=== PATIENT | female | born 1980 | race Caucasian/White ===

== ENCOUNTER 2019-01-30 06:54 | Observation (INO) | payer BC ==
[2019-01-30] MEDS ORDERED: Naloxone 0.4 MG/ML SDV IVPUSH PRN (07:47)
[2019-01-30] MEDS ORDERED: ePHEDrine 50 MG/ML SDV IVPUSH PRN ×2 (07:47)
[2019-01-30] MEDS ORDERED: Sodium Chloride 0.9% 10 ML Syringe FLUSH PRN (07:47)
[2019-01-30] MEDS ORDERED: diphenhydrAMINE 50 MG/ML SDV IVPUSH PRN ×2 (07:47)
[2019-01-30] MEDS ORDERED: Ropivacaine 200 MG in Premix Bag 1 BAG EPIDUR SCH (08:00)
[2019-01-30] MEDS ORDERED: Misoprostol 50 MCG (1/2 of 100 MCG) Tab VAG ONE (08:00)
[2019-01-30] MEDS ORDERED: Lactated Ringers 1,000 ML IV SCH (08:00)
--- NOTE | 2019-01-30 08:02 | PCM.LDHP ---
L&D History of Present Illness - General Date of Service: 01/30/19 Admit Problem/Dx: Patient Status Order with Admit Dx/Problem 01/30/19 07:48 Patient Status [ADT] Routine Admission Diagnosis/Problem Admission Diagnosis/Problem - Related Data Allergies/Adverse Reactions: Allergies Allergy/AdvReac Type Severity Reaction Status Date / Time No Known Allergies Allergy Verified 01/30/19 07:46 H&P Review of Systems - Review of Systems: Review Of Systems: See Below General: Reports: No Symptoms HEENT: Reports: No Symptoms Pulmonary: Reports: No Symptoms Cardiovascular: Reports: No Symptoms Gastrointestinal: Reports: No Symptoms Genitourinary: Reports: No Symptoms Musculoskeletal: Reports: No Symptoms Skin: Reports: No Symptoms Psychiatric: Reports: No Symptoms Neurological: Reports: No Symptoms Hematologic/Lymphatic: Reports: No Symptoms Immunologic: Reports: No Symptoms L&D Exam - Exam Exam: See Below - OB Specific Contraction Intensity: Mild Movement: Active Heart Tones: Present Presentation: Vertex - Baca Score Baca Score Cervix Position: Midposition Baca Score Consistency: Soft Baca Score Effacement: 51-70% Baca Score Dilation: 1-2 cm Baca Score Infant's Station: -1 ,0 Baca Score Total: 8 - Exam General: Alert, Oriented HEENT: PERRLA, Conjunctiva Clear, EACs Clear, EOMI, Hearing Intact, Mucosa Moist & [place], Nares Patent, Normal Nasal Septum, Posterior Pharynx Clear, Pupils Equal, Pupils Reactive, TMs Clear Neck: Supple, Trachea Midline Lungs: Clear to Auscultation, Normal Respiratory Effort Cardiovascular: Regular Rate, Regular Rhythm GI/Abdominal Exam: Normal Bowel Sounds, Soft, Non-Tender, No Organomegaly, No Distention, No Abnormal Bruit, No Mass, Pelvis Stable Rectal Exam: Normal Exam, Normal Rectal Tone Genitourinary: Normal external exam, Normal bimanual exam, Normal speculum exam , Cervical dilitation Back Exam: Normal Inspection, Full Range of Motion Extremities: Normal Inspection, Normal Range of Motion, Non-Tender, No Pedal Edema, Normal Capillary Refill Skin: Warm, Dry, Intact Neurological: Cranial Nerves Intact, Reflexes Equal Bilateral DTR: 2+: Patella (L), Patella (R) Psychiatric: Alert, Normal Affect, Normal Mood - Patient Data Lab Results Last 24 hrs: Laboratory Results - last 24 hr 01/30/19 01/30/19 Range/Units 07:13 07:16 WBC 6.6 (4.5-11.0) K/uL RBC 3.83 (3.30-5.50) M/uL Hgb 11.5 L (12.0-15.0) g/dL Hct 34.7 L (36.0-48.0) % MCV 91 (80-98) fL MCH 30 (27-31) pg MCHC 33 (32-36) % Plt Count 205 (150-400) K/uL Neut % (Auto) 61 (36-66) % Lymph % (Auto) 29 (24-44) % [place] % (Auto) 9 H (2-6) % Eos % (Auto) 1 L (2-4) % Baso % (Auto) 0 (0-1) % Urine Color Yellow (YELLOW) Urine Appearance Cloudy A (CLEAR) Urine pH 6.0 (5.0-8.0) Ur Specific [place] 1.015 (1.008-1.030) Urine Protein Negative (NEGATIVE) mg/dL Urine Glucose (UA) Negative (NEGATIVE) mg/dL Urine Ketones Negative (NEGATIVE) mg/dL Urine Occult Blood Negative (NEGATIVE) Urine Nitrite Negative (NEGATIVE) Urine Bilirubin Negative (NEGATIVE) Urine Urobilinogen 0.2 (0.2-1.0) EU/dL Ur Leukocyte Esterase Trace H (NEGATIVE) Urine RBC 0-5 (0-5) Urine WBC 5-10 H (0-5) Ur Epithelial Cells Many Amorphous Sediment Not seen Urine Bacteria Moderate Urine Mucus Few Result Diagrams: 01/30/19 07:16 - Problem List (1) Advanced maternal age (AMA), 40 years or greater SNOMED Code(s): 144094203 ICD Code: [id number] - Status: Acute Current Visit: Yes (2) SNOMED Code(s): 38274901 ICD Code: Z34.90 - ENCNTR FOR SUPRVSN OF NORMAL , UNSP, UNSP TRIMESTER Status: Acute Current Visit: Yes Qualifiers: Weeks of gestation: 39 weeks Qualified Code(s): Z3A.39 - 39 weeks gestation of (3) Encounter for induction of labor SNOMED Code(s): 735297309 ICD Code: Z34.90 - ENCNTR FOR SUPRVSN OF NORMAL , UNSP, UNSP TRIMESTER Status: Acute Current Visit: Yes Problem List Initiated/Reviewed/Updated: Yes Orders Last 24hrs: Active Orders 24 hr Category Date Time Status Patient Status [ADT] Routine ADT 01/30/19 07:48 Ordered Ambulate [RC] PER UNIT ROUTINE Care 01/30/19 07:47 Ordered Communication Order [RC] ASDIRECTED Care 01/30/19 07:48 Ordered Communication Order [RC] ASDIRECTED Care 01/30/19 07:48 Ordered Communication Order [RC] ROUTINE Care 01/30/19 07:48 Ordered Communication Order [RC] ROUTINE Care 01/30/19 07:48 Ordered Communication Order [RC] ROUTINE Care 01/30/19 07:48 Ordered Dietary Supplements [RC] BIDMEALS Care 01/30/19 07:55 Ordered Heart Tones [RC] PER UNIT ROUTINE Care 01/30/19 07:48 Ordered Non Stress Test [RC] Click to Edit Care 01/30/19 07:48 Ordered Insert Urinary Catheter [OM.PC] ASDIRECTED Care 01/30/19 08:00 Ordered Local Anesthetic Infusion Pump [RC] ASDIRECTED Care 01/30/19 07:48 Ordered Notify Provider Vital Signs [RC] PRN Care 01/30/19 07:47 Ordered Notify Provider [RC] PRN Care 01/30/19 07:48 Ordered Oxygen Therapy [RC] ASDIRECTED Care 01/30/19 07:48 Ordered PCEA Epidural [RC] ASDIRECTED Care 01/30/19 07:48 Ordered PCEA Epidural [RC] ASDIRECTED Care 01/30/19 07:48 Ordered PCEA Epidural [RC] ASDIRECTED Care 01/30/19 07:48 Ordered Peripheral IV Care [RC] . DIRECTED Care 01/30/19 07:48 Ordered Pulse Oximetry [RC] ASDIRECTED Care 01/30/19 07:48 Ordered Urinary Catheter Assessment [RC] ASDIRECTED Care 01/30/19 07:48 Ordered VTE/DVT Education [RC] Click to Edit Care 01/30/19 07:53 Ordered Vital Signs [RC] PER UNIT ROUTINE Care 01/30/19 07:48 Ordered Vital Signs [RC] PER UNIT ROUTINE Care 01/30/19 07:48 Ordered DRUG SCREEN, URINE [URCHEM] Routine Lab 01/30/19 07:42 Ordered Lactated Ringers @ 100 MLS/HR(1,000ml) Med 01/30/19 08:00 Ordered Lactated Ringers [Ringers, Lactated] 1,000 ml IV ASDIRECTED Lactated Ringers [Ringers, Lactated] 1,000 ml Med 01/30/19 07:47 Ordered IV .BOLUS Naloxone [Narcan] Med 01/30/19 07:47 Ordered 0.1 mg IVPUSH ASDIRECTED PRN Penicillin G Potassium [Pfizerpen] 5 millunits Med 01/30/19 07:54 Ordered Sodium Chloride 0.9% [Normal Saline] 50 ml IV ONETIME Ropivacaine [Naropin 0.2%] 200 mg Med 01/30/19 08:00 Ordered Premix Bag 1 bag EPIDUR ASDIRECTED Sodium Chloride 0.9% [Saline Flush] Med 01/30/19 07:47 Ordered 10 ml FLUSH ASDIRECTED PRN diphenhydrAMINE [Benadryl] Med 01/30/19 07:47 Ordered 25 mg IVPUSH Q6H PRN diphenhydrAMINE [Benadryl] Med 01/30/19 07:47 Ordered 50 mg IVPUSH Q6H PRN ePHEDrine [ePHEDrine sulfate] Med 01/30/19 07:47 Ordered 10 mg IVPUSH ASDIRECTED PRN ePHEDrine [ePHEDrine sulfate] Med 01/30/19 07:47 Ordered 10 mg IVPUSH ASDIRECTED PRN miSOPROStol [Cytotec] Med 01/30/19 07:54 Once 50 mcg VAG ONETIME ONE DVT/VTE Prophylaxis Reflex [OM.PC] Routine Oth 01/30/19 07:47 Ordered Epidural Catheter Management [OM.PC] Routine Oth 01/30/19 07:48 Ordered Epidural Catheter Management [OM.PC] Urgent Oth 01/30/19 07:48 Ordered Peripheral IV Insertion Pediatric [OM.PC] Routine Oth 01/30/19 07:48 Ordered Saline Lock Insert [OM.PC] Routine Oth 01/30/19 07:48 Ordered Resuscitation Status Routine Resus Stat 01/30/19 07:47 Ordered Medication Orders Diphenhydramine HCl (Benadryl) 25 mg IVPUSH Q6H PRN PRN Reason: Itching Diphenhydramine HCl (Benadryl) 50 mg IVPUSH Q6H PRN PRN Reason: Itching Ephedrine Sulfate (Ephedrine Sulfate) 10 mg IVPUSH ASDIRECTED PRN PRN Reason: Hypotension Ephedrine Sulfate (Ephedrine Sulfate) 10 mg IVPUSH ASDIRECTED PRN PRN Reason: Hypotension Lactated Ringer's (Ringers, Lactated) 1,000 mls @ 999 mls/hr IV .BOLUS ONE Stop: 01/30/19 08:47 Ropivacaine 200 mg/ Premix 100 mls @ 0 mls/hr EPIDUR ASDIRECTED [facility] Penicillin G Potassium 5 (millunits/ Sodium Chloride) 50 mls @ 100 mls/hr IV ONETIME ONE Stop: 01/30/19 08:23 Lactated Ringer's (Ringers, Lactated) 1,000 mls @ 100 mls/hr IV ASDIRECTED [facility] Misoprostol (Cytotec) 50 mcg VAG ONETIME ONE Stop: 01/30/19 07:55 Naloxone HCl (Narcan) 0.1 mg IVPUSH ASDIRECTED PRN PRN Reason: Oversedation Sodium Chloride (Saline Flush) 10 ml FLUSH ASDIRECTED PRN PRN Reason: Keep Vein Open Assessment/Plan Comment:: 01/30/2019 38 yo here at 39 1/7 weeks gestation for a medical induction of labor due to advanced maternal age and history of large babies on delivery Patient has also requested this induction of labor FHTs category one Patient is luda irregularly SVE-1-2/70/-1 Cytotec placed vaginally Plan- Continue to monitor for active labor Continue to monitor FHTs Pain management per patient request Patient desires epidural for pain management Patient may eat regular diet Patient may be up ad melo Plan and anticipate a vaginal delivery
[2019-01-30] MEDS: Lactated Ringers 1,000 ML IV ONE ×2 (08:12→12:43)
[2019-01-30] MEDS ORDERED: Penicillin G Potassium 5 MILLUNITS in Sodium Chloride 0.9% 50 ML IV ONE (08:30)
[2019-01-30] MEDS ORDERED: Ropivacaine 100 ML ONE (12:22)
[2019-01-30] MEDS: Penicillin G Potassium 2.5 MILLUNITS in Sodium Chloride 0.9% 50 ML IV SCH ×3 (12:42→20:40)
--- NOTE | 2019-01-30 13:07 | ANES ---
DATE OF SERVICE: 01/30/2019 INDICATION: I was called this morning for a lady in for an induction requesting a labor epidural. It is her third baby. She has had epidurals before. A brief history and physical was done with the patient. The patient has had a normal , does not have any abnormal bleeding issues that require her to be on blood thinners. Overall, very normal . Platelet count was 205. Risks and benefits were reviewed with the patient. The patient verbalizes understanding, wishes to proceed with the labor epidural today. She has no known allergies also. TECHNIQUE: The patient was then sat at the edge of the bed. Betadine prep x3 to the lumbar region was done. Sterile drape was placed. A 17-gauge Tuohy needle was inserted at approximately the L4-L5 position. Loss of resistance was achieved at approximately 5.5 cm. Negative paresthesia, negative heme, negative CSF were noted. Catheter was then placed and Tuohy needle was withdrawn. Catheter was pulled back and secured at approximately 14 cm. A 3 mL test dose was done. The patient was then laid in supine position with head of bed slightly elevated and left uterine displacement. Several minutes after the test dose, the patient's heart rate maintained in the 90s and the patient was easily able to move her legs. After the patient was laid down and the test dose was negative, I then proceeded to give the patient 12 mL bolus of 0.2% ropivacaine via the epidural and started her on 0.2% ropivacaine drip at 12 mL an hour. The patient's blood pressure maintained after the labor epidural bolus. Please refer to the nurse's notes for vital signs. Just prior to leaving the patient's room, patient stated that she was starting to have a little bit of numbness and tingling in both of her legs and was happy with her labor epidural at that time. We will continue to monitor the patient as needed. Calin Jeffery CRNA /[id number]
--- NOTE | 2019-01-30 13:18 | PCM.PNLD ---
Labor Progress Note - VS & Meds Vital Signs: Last Vital Signs Temp 35.8 C 01/30/19 08:15 Pulse 100 01/30/19 12:25 Resp 18 01/30/19 12:15 BP 120/88 01/30/19 12:25 Pulse Ox 95 01/30/19 12:25 Active Medications: Current Medications Diphenhydramine HCl (Benadryl) 25 mg IVPUSH Q6H PRN PRN Reason: Itching Diphenhydramine HCl (Benadryl) 50 mg IVPUSH Q6H PRN PRN Reason: Itching Ephedrine Sulfate (Ephedrine Sulfate) 10 mg IVPUSH ASDIRECTED PRN PRN Reason: Hypotension Ephedrine Sulfate (Ephedrine Sulfate) 10 mg IVPUSH ASDIRECTED PRN PRN Reason: Hypotension Ropivacaine 200 mg/ Premix 100 mls @ 0 mls/hr EPIDUR ASDIRECTED [facility] Lactated Ringer's (Ringers, Lactated) 1,000 mls @ 100 mls/hr IV ASDIRECTED [facility] Last Admin: 01/30/19 08:14 Dose: 100 mls/hr Oxytocin/Sodium Chloride (Pitocin In Ns 20 Units/1,000 Ml) 20 unit in 1,000 mls @ 2,997 mls/hr IV TITRATE [facility]IGUELITO Penicillin G Potassium 2.5 (millunits/ Sodium Chloride) 50 mls @ 100 mls/hr IV Q4H [facility] Last Admin: 01/30/19 12:42 Dose: 100 mls/hr Naloxone HCl (Narcan) 0.1 mg IVPUSH ASDIRECTED PRN PRN Reason: Oversedation Sodium Chloride (Saline Flush) 10 ml FLUSH ASDIRECTED PRN PRN Reason: Keep Vein Open Discontinued Medications Lactated Ringer's (Ringers, Lactated) 1,000 mls @ 999 mls/hr IV .BOLUS ONE Stop: 01/30/19 08:47 Last Admin: 01/30/19 12:43 Dose: 999 mls/hr Penicillin G Potassium 5 (millunits/ Sodium Chloride) 50 mls @ 100 mls/hr IV ONETIME ONE Stop: 01/30/19 08:59 Last Admin: 01/30/19 08:45 Dose: 100 mls/hr Oxytocin/Sodium Chloride (Pitocin In Ns 20 Units/1,000 Ml) 20 unit in 1,000 mls @ 2,997 mls/hr IV ONETIME ONE; Protocol Stop: 01/30/19 12:15 Ropivacaine (Naropin 0.2%) Confirm Administered Dose 100 mls @ as directed .ROUTE .STK-MED ONE Stop: 01/30/19 12:23 Misoprostol (Cytotec) 50 mcg VAG ONETIME ONE Stop: 01/30/19 08:01 Last Admin: 01/30/19 08:09 Dose: 50 mcg - Uterine Contractions Uterine Monitoring Mode: External [place] Contraction Frequency (min): 1-2.5 Contraction Duration (sec): 30-90 Contraction Intensity: Moderate Uterine Resting Tone: Soft - Vaginal Exam Dilation (cm): 3.5 Effacement (Percent): 70 Station: -2 Cervical Position: Midposition Sterile Vaginal Exam Performed By: Teresa Phan - Labor Progress (Free Text) Labor Progress: 01/30/2019 Patient doing well Patient requested epidural-epidural done SVE-3-4/70/-2 FHTs category one Plan- Continue to monitor for active labor Continue to monitor FHTs Start pitocin now per protocol PCN G still IV for GBS prophylaxis Plan and anticipate a vaginal delivery
--- NOTE | 2019-01-30 18:26 | PCM.PNLD ---
Labor Progress Note - VS & Meds Vital Signs: Last Vital Signs Temp 35.8 C 01/30/19 13:45 Pulse 108 H 01/30/19 17:00 Resp 16 01/30/19 13:45 BP 127/72 01/30/19 17:00 Pulse Ox 99 01/30/19 17:00 Active Medications: Current Medications Diphenhydramine HCl (Benadryl) 25 mg IVPUSH Q6H PRN PRN Reason: Itching Diphenhydramine HCl (Benadryl) 50 mg IVPUSH Q6H PRN PRN Reason: Itching Ephedrine Sulfate (Ephedrine Sulfate) 10 mg IVPUSH ASDIRECTED PRN PRN Reason: Hypotension Ephedrine Sulfate (Ephedrine Sulfate) 10 mg IVPUSH ASDIRECTED PRN PRN Reason: Hypotension Ropivacaine 200 mg/ Premix 100 mls @ 0 mls/hr EPIDUR ASDIRECTED [facility] Lactated Ringer's (Ringers, Lactated) 1,000 mls @ 100 mls/hr IV ASDIRECTED [facility] Last Admin: 01/30/19 08:14 Dose: 100 mls/hr Oxytocin/Sodium Chloride (Pitocin In Ns 20 Units/1,000 Ml) 20 unit in 1,000 mls @ 2,997 mls/hr IV TITRATE [facility] Last Infusion: 01/30/19 17:06 Dose: 13 munits/min, 39 mls/hr Penicillin G Potassium 2.5 (millunits/ Sodium Chloride) 50 mls @ 100 mls/hr IV Q4H [facility] Last Admin: 01/30/19 16:39 Dose: 100 mls/hr Naloxone HCl (Narcan) 0.1 mg IVPUSH ASDIRECTED PRN PRN Reason: Oversedation Sodium Chloride (Saline Flush) 10 ml FLUSH ASDIRECTED PRN PRN Reason: Keep Vein Open Discontinued Medications Lactated Ringer's (Ringers, Lactated) 1,000 mls @ 999 mls/hr IV .BOLUS ONE Stop: 01/30/19 08:47 Last Admin: 01/30/19 12:43 Dose: 999 mls/hr Penicillin G Potassium 5 (millunits/ Sodium Chloride) 50 mls @ 100 mls/hr IV ONETIME ONE Stop: 01/30/19 08:59 Last Admin: 01/30/19 08:45 Dose: 100 mls/hr Oxytocin/Sodium Chloride (Pitocin In Ns 20 Units/1,000 Ml) 20 unit in 1,000 mls @ 2,997 mls/hr IV ONETIME ONE; Protocol Stop: 01/30/19 12:15 Ropivacaine (Naropin 0.2%) Confirm Administered Dose 100 mls @ as directed .ROUTE .STK-MED ONE Stop: 01/30/19 12:23 Misoprostol (Cytotec) 50 mcg VAG ONETIME ONE Stop: 01/30/19 08:01 Last Admin: 01/30/19 08:09 Dose: 50 mcg - Uterine Contractions Uterine Monitoring Mode: External [place] Contraction Frequency (min): 1-6 Contraction Duration (sec): 60-110 Contraction Intensity: Moderate Uterine Resting Tone: Soft - Monitoring Heart Rate (FHR) Variability: Moderate (6-25 bmp) Accelerations: Present, 15x15 Decelerations: None Strip Review: Category I - Vaginal Exam Dilation (cm): 3.5 Effacement (Percent): 70 Station: -2 Cervical Position: Midposition Sterile Vaginal Exam Performed By: Teresa Phan Vaginal Exam Comment: no change in SVE - Labor Progress (Free Text) Labor Progress: 01/30/2019 Patient has not progressed while on pitocin Pitocin is at 19 units SVE-3.5/70/-2 with ballotable head FHTs category one Epidural is dense Discussion made with and patient about all options-shutting epidural off and sleeping with restart in am, shutting epidural off and going home, slow breaking water with scalp electrode, or proceeding as is with pitocin and epidural like ordinally planned. Patient and both agreed to stop epidural, shut medicine off, restart in am. Education done that she may go into labor on her own tonight, that she may still have to go home tomorrow if no change. Education that they also may have to redo epidural once labor kicks in and she wants it back. Patient agreeable to all options. Did phone Don from anesthesia-he states to shut off epidural, leave in place, and he will come back an bolus if needed. Also he will come check on us after a procedure in am if we have not called him yet Plan- Shut epidural Off Shut pitocin off Continue monitoring until full sensation is back, then can intermittently monitor while patient sleeps Pull deluna catheter once full sensation is back and urinate on own If active labor and is 5-6cm or SROM occurs patient can have epidural- anesthesia to be notified then at that time and have stated they will come back in to bolus and turn epidural back on. Call provider if this occurs. Continue PCN IV due to risk of SROM Continue IV fluids at TKO May eat regular diet Vistaril if needed for sleep-do not give after 11pm Vital signs and NST every four hours if sleeping Will plan to start induction of labor again in am @ 0700-if no spontaneous labor during night.
[2019-01-30] MEDS ORDERED: hydrOXYzine HCl 25 MG Tab PO SCH (21:00)
[2019-01-31] MEDS: Penicillin G Potassium 2.5 MILLUNITS in Sodium Chloride 0.9% 50 ML IV SCH ×4 (00:51→13:33)
[2019-01-31] MEDS ORDERED: Misoprostol 50 MCG (1/2 of 100 MCG) Tab VAG ONE (06:02)
[2019-01-31] MEDS ORDERED: Misoprostol 25 MCG (1/4 of 100 MCG) Tab ONE (06:05)
--- NOTE | 2019-01-31 06:25 | PCM.PNLD ---
Labor Progress Note - VS & Meds Vital Signs: Last Vital Signs Temp 36.0 C 01/30/19 21:54 Pulse 97 01/30/19 21:54 Resp 20 01/30/19 21:54 BP 136/79 01/30/19 21:54 Pulse Ox 96 01/30/19 21:54 Active Medications: Current Medications Diphenhydramine HCl (Benadryl) 25 mg IVPUSH Q6H PRN PRN Reason: Itching Diphenhydramine HCl (Benadryl) 50 mg IVPUSH Q6H PRN PRN Reason: Itching Ephedrine Sulfate (Ephedrine Sulfate) 10 mg IVPUSH ASDIRECTED PRN PRN Reason: Hypotension Ephedrine Sulfate (Ephedrine Sulfate) 10 mg IVPUSH ASDIRECTED PRN PRN Reason: Hypotension Hydroxyzine HCl (Atarax) 50 mg PO BEDTIME [facility] Last Admin: 01/31/19 00:54 Dose: 50 mg Ropivacaine 200 mg/ Premix 100 mls @ 0 mls/hr EPIDUR ASDIRECTED [facility] Lactated Ringer's (Ringers, Lactated) 1,000 mls @ 100 mls/hr IV ASDIRECTED [facility] Last Admin: 01/30/19 08:14 Dose: 100 mls/hr Oxytocin/Sodium Chloride (Pitocin In Ns 20 Units/1,000 Ml) 20 unit in 1,000 mls @ 2,997 mls/hr IV TITRATE [facility] Last Infusion: 01/30/19 17:06 Dose: 13 munits/min, 39 mls/hr Penicillin G Potassium 2.5 (millunits/ Sodium Chloride) 50 mls @ 100 mls/hr IV Q4H [facility] Last Admin: 01/31/19 05:29 Dose: 100 mls/hr Naloxone HCl (Narcan) 0.1 mg IVPUSH ASDIRECTED PRN PRN Reason: Oversedation Sodium Chloride (Saline Flush) 10 ml FLUSH ASDIRECTED PRN PRN Reason: Keep Vein Open Discontinued Medications Lactated Ringer's (Ringers, Lactated) 1,000 mls @ 999 mls/hr IV .BOLUS ONE Stop: 01/30/19 08:47 Last Admin: 01/30/19 12:43 Dose: 999 mls/hr Penicillin G Potassium 5 (millunits/ Sodium Chloride) 50 mls @ 100 mls/hr IV ONETIME ONE Stop: 01/30/19 08:59 Last Admin: 01/30/19 08:45 Dose: 100 mls/hr Oxytocin/Sodium Chloride (Pitocin In Ns 20 Units/1,000 Ml) 20 unit in 1,000 mls @ 2,997 mls/hr IV ONETIME ONE; Protocol Stop: 01/30/19 12:15 Ropivacaine (Naropin 0.2%) Confirm Administered Dose 100 mls @ as directed .ROUTE .STK-MED ONE Stop: 01/30/19 12:23 Misoprostol (Cytotec) 50 mcg VAG ONETIME ONE Stop: 01/30/19 08:01 Last Admin: 01/30/19 08:09 Dose: 50 mcg Misoprostol (Cytotec) 25 mcg VAG ONETIME ONE Stop: 01/31/19 06:03 Last Admin: 01/31/19 06:14 Dose: 25 mcg Misoprostol (Cytotec) Confirm Administered Dose 25 mcg .ROUTE .STK-MED ONE Stop: 01/31/19 06:06 Last Admin: 01/31/19 06:13 Dose: Not Given - Uterine Contractions Uterine Monitoring Mode: External [place] Contraction Frequency (min): Frequent, no consistent pattern Contraction Duration (sec): 80-120 Contraction Intensity: Mild Uterine Resting Tone: Soft - Monitoring Heart Rate (FHR) Variability: Moderate (6-25 bmp) Accelerations: Present, 15x15 Decelerations: None Strip Review: Category I - Vaginal Exam Dilation (cm): 3 Effacement (Percent): 70 Station: -1 Cervical Position: Midposition Sterile Vaginal Exam Performed By: Teresa Phan Vaginal Exam Comment: no change in SVE - Labor Progress (Free Text) Labor Progress: 01/31/2019 Patient has slept most of night Epidural wore off around 10pm last night Patient was able to walk and urinate Patient has still had contractions but irregular FHTs category one SVE is unchanged-3/70/-1 Cytotec 25mcg placed vaginally PCN G for GBS positive IV fluids TKO Epidural remains in place just not active Plan- Continue to monitor for active labor Continue to monitor FHTs Continue pain management per patient request Continue PCN G for GBS Plan and anticipate a vaginal delivery
--- NOTE | 2019-01-31 10:35 | PCM.PNLD ---
Labor Progress Note - VS & Meds Vital Signs: Last Vital Signs Temp 35.8 C 01/31/19 08:02 Pulse 105 H 01/31/19 08:02 Resp 16 01/31/19 08:02 BP 130/80 01/31/19 08:02 Pulse Ox 96 01/31/19 08:02 Active Medications: Current Medications Diphenhydramine HCl (Benadryl) 25 mg IVPUSH Q6H PRN PRN Reason: Itching Diphenhydramine HCl (Benadryl) 50 mg IVPUSH Q6H PRN PRN Reason: Itching Ephedrine Sulfate (Ephedrine Sulfate) 10 mg IVPUSH ASDIRECTED PRN PRN Reason: Hypotension Ephedrine Sulfate (Ephedrine Sulfate) 10 mg IVPUSH ASDIRECTED PRN PRN Reason: Hypotension Hydroxyzine HCl (Atarax) 50 mg PO BEDTIME [facility] Last Admin: 01/31/19 00:54 Dose: 50 mg Ropivacaine 200 mg/ Premix 100 mls @ 0 mls/hr EPIDUR ASDIRECTED [facility] Lactated Ringer's (Ringers, Lactated) 1,000 mls @ 100 mls/hr IV ASDIRECTED [facility] Last Admin: 01/30/19 08:14 Dose: 100 mls/hr Oxytocin/Sodium Chloride (Pitocin In Ns 20 Units/1,000 Ml) 20 unit in 1,000 mls @ 2,997 mls/hr IV TITRATE [facility] Last Infusion: 01/30/19 17:06 Dose: 13 munits/min, 39 mls/hr Penicillin G Potassium 2.5 (millunits/ Sodium Chloride) 50 mls @ 100 mls/hr IV Q4H [facility] Last Admin: 01/31/19 08:43 Dose: 100 mls/hr Naloxone HCl (Narcan) 0.1 mg IVPUSH ASDIRECTED PRN PRN Reason: Oversedation Sodium Chloride (Saline Flush) 10 ml FLUSH ASDIRECTED PRN PRN Reason: Keep Vein Open Discontinued Medications Lactated Ringer's (Ringers, Lactated) 1,000 mls @ 999 mls/hr IV .BOLUS ONE Stop: 01/30/19 08:47 Last Admin: 01/30/19 12:43 Dose: 999 mls/hr Penicillin G Potassium 5 (millunits/ Sodium Chloride) 50 mls @ 100 mls/hr IV ONETIME ONE Stop: 01/30/19 08:59 Last Admin: 01/30/19 08:45 Dose: 100 mls/hr Oxytocin/Sodium Chloride (Pitocin In Ns 20 Units/1,000 Ml) 20 unit in 1,000 mls @ 2,997 mls/hr IV ONETIME ONE; Protocol Stop: 01/30/19 12:15 Ropivacaine (Naropin 0.2%) Confirm Administered Dose 100 mls @ as directed .ROUTE .STK-MED ONE Stop: 01/30/19 12:23 Misoprostol (Cytotec) 50 mcg VAG ONETIME ONE Stop: 01/30/19 08:01 Last Admin: 01/30/19 08:09 Dose: 50 mcg Misoprostol (Cytotec) 25 mcg VAG ONETIME ONE Stop: 01/31/19 06:03 Last Admin: 01/31/19 06:14 Dose: 25 mcg Misoprostol (Cytotec) Confirm Administered Dose 25 mcg .ROUTE .STK-MED ONE Stop: 01/31/19 06:06 Last Admin: 01/31/19 06:13 Dose: Not Given - Uterine Contractions Uterine Monitoring Mode: External [place] Contraction Frequency (min): occas. Contraction Duration (sec): 50-90 Contraction Intensity: Mild Uterine Resting Tone: Soft - Monitoring Heart Rate (FHR) Variability: Moderate (6-25 bmp) Accelerations: Present, 15x15 Decelerations: None Strip Review: Category I - Vaginal Exam Dilation (cm): 4 Effacement (Percent): 75 Station: -1 Cervical Position: Midposition Sterile Vaginal Exam Performed By: Teresa Phan - Labor Progress (Free Text) Labor Progress: 01/31/2019 Patient not luda super regular SVE slight change-/-1 FHTs category one Patient not having pain, was able to nap PCN G for GBS IV TKO Epidural in place not active Plan- Education done and patient would like to stay and be checked in 2 hours if no change patient will go home at that time Continue to monitor for labor Continue to monitor FHTs Pain management per patient request Will assess per RN in two hours and phone provider
== END 2019-01-31 13:30 | disposition home or self-care (01) ==
LOC: JP.OB 06:54
PROVIDERS: ADMIT Advanced Practice Midwife; ATTEND Advanced Practice Midwife
DX: O09.523 Supervision of elderly multigravida, third trimester (principal); Z3A.39 39 weeks gestation of pregnancy; Z87.59 Personal history of other complications of pregnancy, childbirth and the puerperium
CPT/HCPCS: 36415; 51702; 59025; 80305; 81001; 85025; 96361; 96365; 96366; 96367; 96376; A9270; G0378; J2540; J2590; J2795; J7050; J7120; 51701; 99211

== ENCOUNTER 2019-02-05 06:49 | Inpatient (IN) | payer BC ==
[2019-02-05] MEDS ORDERED: Misoprostol 50 MCG (1/2 of 100 MCG) Tab VAG ONE (07:30)
[2019-02-05] MEDS: Lactated Ringers 1,000 ML IV SCH ×2 (07:30→15:07)
[2019-02-05] MEDS ORDERED: Acetaminophen 325 MG Tab PO PRN (07:50)
[2019-02-05] MEDS ORDERED: Ondansetron 4 MG/2 ML SDV IV PRN (07:50)
[2019-02-05] MEDS ORDERED: ePHEDrine 50 MG/ML SDV IVPUSH PRN ×2 (07:50)
[2019-02-05] MEDS ORDERED: Naloxone 0.4 MG/ML SDV IVPUSH PRN (07:50)
[2019-02-05] MEDS ORDERED: diphenhydrAMINE 50 MG/ML SDV IVPUSH PRN ×2 (07:50)
[2019-02-05] MEDS ORDERED: Lactated Ringers 1,000 ML IV ONE (07:50)
[2019-02-05] MEDS ORDERED: Sodium Chloride 0.9% 10 ML Syringe FLUSH PRN (07:50)
[2019-02-05] MEDS ORDERED: Ropivacaine 200 MG in Premix Bag 1 BAG EPIDUR SCH (08:00)
--- NOTE | 2019-02-05 08:20 | PCM.LDHP ---
L&D History of Present Illness - General Date of Service: 02/05/19 Admit Problem/Dx: Patient Status Order with Admit Dx/Problem 02/05/19 07:50 Patient Status [ADT] Routine Admission Diagnosis/Problem Admission Diagnosis/Problem - Related Data Allergies/Adverse Reactions: Allergies Allergy/AdvReac Type Severity Reaction Status Date / Time No Known Allergies Allergy Verified 01/30/19 07:46 Home Medications: Home Meds #57/Iron/FA/DSS/DHA [Extra-Virt Plus Dha Softgel] 1 tab PO DAILY [History] Sertraline [Zoloft] 25 mg PO DAILY 01/30/19 [History] Past Medical History HEENT History: Reports: None [employer] History: Reports: , Spontaneous , Other (See Below) Other OB/BYN History: blighted ovum, ovarian cyst Psychiatric History: Reports: Depression Other Psychiatric History: depression Social & Family History - Family History Oncologic: Reports: Other (See Below) Other Oncologic Family History: throat - Tobacco Use Smoking Status *Q: Former Smoker Used Tobacco, but Quit: Yes Month/Year Tobacco Last Used: 2011 Second Hand Smoke Exposure: No - Caffeine Use Caffeine Use: Reports: Soda, Tea - Recreational Drug Use Recreational Drug Use: No H&P Review of Systems - Review of Systems: Review Of Systems: See Below General: Reports: No Symptoms HEENT: Reports: No Symptoms Pulmonary: Reports: No Symptoms Cardiovascular: Reports: No Symptoms Gastrointestinal: Reports: No Symptoms Genitourinary: Reports: No Symptoms Musculoskeletal: Reports: No Symptoms Skin: Reports: No Symptoms Psychiatric: Reports: No Symptoms Neurological: Reports: No Symptoms Hematologic/Lymphatic: Reports: No Symptoms Immunologic: Reports: No Symptoms L&D Exam - Exam Exam: See Below - Vital Signs Vital Signs: Last Vital Signs Temp 35.1 C L 02/05/19 07:10 Pulse 92 02/05/19 07:10 Resp 16 02/05/19 07:10 BP 128/83 02/05/19 07:10 Pulse Ox 95 02/05/19 07:10 Weight: 86.908 kg - OB Specific Contraction Intensity: Mild Movement: Active Heart Tones: Present Heart Rate (FHR) Variability: Moderate (6-25 bmp) Presentation: Vertex - Baca Score Baca Score Cervix Position: Midposition Baca Score Consistency: Soft Baca Score Effacement: 51-70% Baca Score Dilation: 3-4 cm Baca Score Infant's Station: -1 ,0 Baca Score Total: 9 - Exam General: Alert, Oriented, Cooperative HEENT: PERRLA, Conjunctiva Clear, EACs Clear, EOMI, Hearing Intact, Mucosa Moist & [place], Nares Patent, Normal Nasal Septum, Posterior Pharynx Clear, TMs Clear Neck: Supple, Trachea Midline Lungs: Clear to Auscultation, Normal Respiratory Effort Cardiovascular: Regular Rate, Regular Rhythm GI/Abdominal Exam: Normal Bowel Sounds, Soft, Non-Tender, No Organomegaly, No Distention, No Abnormal Bruit, No Mass, Pelvis Stable Rectal Exam: Normal Exam, Normal Rectal Tone Genitourinary: Normal external exam, Normal bimanual exam, Normal speculum exam Back Exam: Normal Inspection, Full Range of Motion Extremities: Normal Inspection, Normal Range of Motion, Non-Tender, No Pedal Edema, Normal Capillary Refill Skin: Warm, Dry, Intact Neurological: Cranial Nerves Intact, Reflexes Equal Bilateral Psychiatric: Alert, Normal Affect, Normal Mood - Patient Data Lab Results Last 24 hrs: Laboratory Results - last 24 hr 02/05/19 02/05/19 02/05/19 Range/Units 07:10 07:10 07:11 WBC 6.1 (4.5-11.0) K/uL RBC 3.90 (3.30-5.50) M/uL Hgb 11.4 L (12.0-15.0) g/dL Hct 35.3 L (36.0-48.0) % MCV 91 (80-98) fL MCH 29 (27-31) pg MCHC 32 (32-36) % Plt Count 233 (150-400) K/uL Urine Color Yellow (YELLOW) Urine Appearance Cloudy A (CLEAR) Urine pH 6.5 (5.0-8.0) Ur Specific [place] 1.015 (1.008-1.030) Urine Protein Negative (NEGATIVE) mg/dL Urine Glucose (UA) Negative (NEGATIVE) mg/dL Urine Ketones Negative (NEGATIVE) mg/dL Urine Occult Blood Moderate H (NEGATIVE) Urine Nitrite Negative (NEGATIVE) Urine Bilirubin Negative (NEGATIVE) Urine Urobilinogen 0.2 (0.2-1.0) EU/dL Ur Leukocyte Esterase Small H (NEGATIVE) Urine RBC Not seen (0-5) Urine WBC 0-5 (0-5) Ur Epithelial Cells Many Amorphous Sediment Not seen Urine Bacteria Moderate Urine Mucus Not seen Urine Opiates Screen Negative (NEGATIVE) Ur Oxycodone Screen Negative (NEGATIVE) Urine Methadone Screen Negative (NEGATIVE) Ur Propoxyphene Screen Negative (NEGATIVE) Ur Barbiturates Screen Negative (NEGATIVE) Ur Tricyclics Screen Negative (NEGATIVE) Ur Phencyclidine Scrn Negative (NEGATIVE) Ur Amphetamine Screen Negative (NEGATIVE) U Methamphetamines Scrn Negative (NEGATIVE) Urine MDMA Screen Negative (NEGATIVE) U Benzodiazepines Scrn Negative (NEGATIVE) U Cocaine Metab Screen Negative (NEGATIVE) U Marijuana (THC) Screen Negative (NEGATIVE) Result Diagrams: 02/05/19 07:10 - Problem List (1) Positive GBS test SNOMED Code(s): 167852950, 988160008 ICD Code: B95.1 - STREPTOCOCCUS, GROUP B, CAUSING DISEASES CLASSD [id number] Status: Acute Current Visit: Yes (2) Advanced maternal age (AMA), 40 years or greater SNOMED Code(s): 542609372 ICD Code: VYG8994 - Status: Acute Current Visit: No (3) Encounter for induction of labor SNOMED Code(s): 103326451 ICD Code: Z34.90 - ENCNTR FOR SUPRVSN OF NORMAL , UNSP, UNSP TRIMESTER Status: Acute Current Visit: No (4) SNOMED Code(s): 58312955 ICD Code: Z34.90 - ENCNTR FOR SUPRVSN OF NORMAL , UNSP, UNSP TRIMESTER Status: Acute Current Visit: No Qualifiers: Problem List Initiated/Reviewed/Updated: Yes Orders Last 24hrs: Active Orders 24 hr Category Date Time Status Patient Status [ADT] Routine ADT 02/05/19 07:50 Active Ambulate [RC] PER UNIT ROUTINE Care 02/05/19 07:50 Active Communication Order [RC] ASDIRECTED Care 02/05/19 07:50 Active Communication Order [RC] ASDIRECTED Care 02/05/19 07:50 Active Communication Order [RC] ROUTINE Care 02/05/19 07:50 Active Communication Order [RC] ROUTINE Care 02/05/19 07:50 Active Communication Order [RC] ROUTINE Care 02/05/19 07:50 Active Heart Tones [RC] PER UNIT ROUTINE Care 02/05/19 07:50 Active Non Stress Test [RC] Click to Edit Care 02/05/19 07:50 Active Insert Urinary Catheter [OM.PC] ASDIRECTED Care 02/05/19 08:00 Ordered Local Anesthetic Infusion Pump [RC] ASDIRECTED Care 02/05/19 07:50 Active Notify Provider Vital Signs [RC] PRN Care 02/05/19 07:50 Active Notify Provider [RC] PRN Care 02/05/19 07:50 Active Oxygen Therapy [RC] ASDIRECTED Care 02/05/19 07:50 Active PCEA Epidural [RC] ASDIRECTED Care 02/05/19 07:50 Active PCEA Epidural [RC] ASDIRECTED Care 02/05/19 07:50 Active PCEA Epidural [RC] ASDIRECTED Care 02/05/19 07:51 Active Peripheral IV Care [RC] . DIRECTED Care 02/05/19 07:51 Active Pulse Oximetry [RC] ASDIRECTED Care 02/05/19 07:50 Active Up ad [place] [RC] ASDIRECTED Care 02/05/19 07:50 Active Urinary Catheter Assessment [RC] ASDIRECTED Care 02/05/19 07:51 Active VTE/DVT Education [RC] Click to Edit Care 02/05/19 07:52 Active Vital Signs [RC] PER UNIT ROUTINE Care 02/05/19 07:50 Active Vital Signs [RC] PER UNIT ROUTINE Care 02/05/19 07:50 Active Regular Diet [DIET] Diet 02/05/19 Breakfast Active Acetaminophen [Tylenol] Med 02/05/19 07:50 Ordered 650 mg PO Q4H PRN Lactated Ringers [Ringers, Lactated] 1,000 ml Med 02/05/19 07:50 Ordered IV .BOLUS Lactated Ringers [Ringers, Lactated] 1,000 ml Med 02/05/19 07:30 Active IV ASDIRECTED Naloxone [Narcan] Med 02/05/19 07:50 Ordered 0.1 mg IVPUSH ASDIRECTED PRN Ondansetron [Zofran] Med 02/05/19 07:50 Ordered 4 mg IV Q4H PRN Oxytocin/Normal Saline [Pitocin in NS 20 Units/1,000 ML Med 02/05/19 08:00 Ordered ] 20 unit in 1,000 ml IV TITRATE Penicillin G Potassium [Pfizerpen] 2.5 millunits Med 02/05/19 12:00 Ordered Sodium Chloride 0.9% [Normal Saline] 50 ml IV Q4H Penicillin G Potassium [Pfizerpen] 5 millunits Med 02/05/19 07:59 Ordered Sodium Chloride 0.9% [Normal Saline] 50 ml IV ONETIME Ropivacaine [Naropin 0.2%] 200 mg Med 02/05/19 08:00 Ordered Premix Bag 1 bag EPIDUR ASDIRECTED Sodium Chloride 0.9% [Saline Flush] Med 02/05/19 07:50 Ordered 10 ml FLUSH ASDIRECTED PRN diphenhydrAMINE [Benadryl] Med 02/05/19 07:50 Ordered 25 mg IVPUSH Q6H PRN diphenhydrAMINE [Benadryl] Med 02/05/19 07:50 Ordered 50 mg IVPUSH Q6H PRN ePHEDrine [ePHEDrine sulfate] Med 02/05/19 07:50 Ordered 10 mg IVPUSH ASDIRECTED PRN ePHEDrine [ePHEDrine sulfate] Med 02/05/19 07:50 Ordered 10 mg IVPUSH ASDIRECTED PRN DVT/VTE Prophylaxis Reflex [OM.PC] Routine Oth 02/05/19 07:50 Ordered Epidural Catheter Management [OM.PC] Routine Oth 02/05/19 07:50 Ordered Epidural Catheter Management [OM.PC] Urgent Oth 02/05/19 07:50 Ordered Peripheral IV Insertion Pediatric [OM.PC] Routine Oth 02/05/19 07:50 Ordered Saline Lock Insert [OM.PC] Routine Oth 02/05/19 07:50 Ordered Resuscitation Status Routine Resus Stat 02/05/19 07:50 Ordered Medication Orders Acetaminophen (Tylenol) 650 mg PO Q4H PRN PRN Reason: Pain (Mild 1-3) and fever Diphenhydramine HCl (Benadryl) 25 mg IVPUSH Q6H PRN PRN Reason: Itching Diphenhydramine HCl (Benadryl) 50 mg IVPUSH Q6H PRN PRN Reason: Itching Ephedrine Sulfate (Ephedrine Sulfate) 10 mg IVPUSH ASDIRECTED PRN PRN Reason: Hypotension Ephedrine Sulfate (Ephedrine Sulfate) 10 mg IVPUSH ASDIRECTED PRN PRN Reason: Hypotension Lactated Ringer's (Ringers, Lactated) 1,000 mls @ 125 mls/hr IV ASDIRECTED [facility] Lactated Ringer's (Ringers, Lactated) 1,000 mls @ 999 mls/hr IV .BOLUS ONE Stop: 02/05/19 08:50 Ropivacaine 200 mg/ Premix 100 mls @ 0 mls/hr EPIDUR ASDIRECTED [facility] Oxytocin/Sodium Chloride (Pitocin In Ns 20 Units/1,000 Ml) 20 unit in 1,000 mls @ 6 mls/hr IV TITRATE [facility]; Protocol Penicillin G Potassium 5 (millunits/ Sodium Chloride) 50 mls @ 100 mls/hr IV ONETIME ONE Stop: 02/05/19 08:28 Penicillin G Potassium 2.5 (millunits/ Sodium Chloride) 50 mls @ 100 mls/hr IV Q4H [facility] Naloxone HCl (Narcan) 0.1 mg IVPUSH ASDIRECTED PRN PRN Reason: Oversedation Ondansetron HCl (Zofran) 4 mg IV Q4H PRN PRN Reason: Nausea/Vomiting Sodium Chloride (Saline Flush) 10 ml FLUSH ASDIRECTED PRN PRN Reason: Keep Vein Open Assessment/Plan Comment:: 02/05/2019 38 yo here at 40 0/7 weeks gestation for induction of labor Advanced maternal age GBS positive History of macrosomia in previous deliveries Labs-A positive, Hep B neg, Hep C neg, HIV neg, RPR nonreactive, GBS positive SVE-3-4/75/-1 FHTs category one Plan- Continue to monitor for active labor Continue to monitor for FHTs Start Pitocin per protocol Start PCN G for GBS per protocol Patient may be up ad merlyn Patient may have epidural for pain management Patient may eat regular diet Plan and anticipate a vaginal delivery
[2019-02-05] MEDS ORDERED: Penicillin G Potassium 5 MILLUNITS in Sodium Chloride 0.9% 50 ML IV ONE (08:30)
--- NOTE | 2019-02-05 11:58 | PCM.PNLD ---
Labor Progress Note - VS & Meds Vital Signs: Last Vital Signs Temp 35.0 C L 02/05/19 10:25 Pulse 94 02/05/19 10:25 Resp 18 02/05/19 10:25 BP 123/80 02/05/19 10:25 Pulse Ox 96 02/05/19 10:25 Active Medications: Current Medications Acetaminophen (Tylenol) 650 mg PO Q4H PRN PRN Reason: Pain (Mild 1-3) and fever Diphenhydramine HCl (Benadryl) 25 mg IVPUSH Q6H PRN PRN Reason: Itching Diphenhydramine HCl (Benadryl) 50 mg IVPUSH Q6H PRN PRN Reason: Itching Ephedrine Sulfate (Ephedrine Sulfate) 10 mg IVPUSH ASDIRECTED PRN PRN Reason: Hypotension Lactated Ringer's (Ringers, Lactated) 1,000 mls @ 125 mls/hr IV ASDIRECTED [facility] Last Admin: 02/05/19 07:30 Dose: 125 mls/hr Ropivacaine 200 mg/ Premix 100 mls @ 0 mls/hr EPIDUR ASDIRECTED [facility] Oxytocin/Sodium Chloride (Pitocin In Ns 20 Units/1,000 Ml) 20 unit in 1,000 mls @ 6 mls/hr IV TITRATE [facility]; Protocol Last Titration: 02/05/19 11:32 Dose: 14 munits/min, 42 mls/hr Penicillin G Potassium 2.5 (millunits/ Sodium Chloride) 50 mls @ 100 mls/hr IV Q4H [facility] Naloxone HCl (Narcan) 0.1 mg IVPUSH ASDIRECTED PRN PRN Reason: Oversedation Ondansetron HCl (Zofran) 4 mg IV Q4H PRN PRN Reason: Nausea/Vomiting Sodium Chloride (Saline Flush) 10 ml FLUSH ASDIRECTED PRN PRN Reason: Keep Vein Open Discontinued Medications Lactated Ringer's (Ringers, Lactated) 1,000 mls @ 999 mls/hr IV .BOLUS ONE Stop: 02/05/19 08:50 Penicillin G Potassium 5 (millunits/ Sodium Chloride) 50 mls @ 100 mls/hr IV ONETIME ONE Stop: 02/05/19 08:59 Last Admin: 02/05/19 08:33 Dose: 100 mls/hr Misoprostol (Cytotec) 50 mcg VAG ONETIME ONE Stop: 02/05/19 07:31 Last Admin: 02/05/19 08:44 Dose: Not Given - Uterine Contractions Uterine Monitoring Mode: External [place] Contraction Frequency (min): 2-3 Contraction Duration (sec): 50-70 Contraction Intensity: Moderate Uterine Resting Tone: Soft - Monitoring Heart Rate (FHR) Variability: Moderate (6-25 bmp) - Vaginal Exam Dilation (cm): 4 Effacement (Percent): 80 Station: -1 Cervical Position: Midposition Sterile Vaginal Exam Performed By: Teresa Phan - Labor Progress (Free Text) Labor Progress: 02/05/2019 Patient not in active labor but contractions getting more regular Patient states that she is starting to feel more of them and more pressure SVE-/-1 Discussed breaking her water later today when up to 20 of pitocin Discussed pain management choices Plan- Continue to monitor for active labor Continue to monitor FHTs Continue pitocin per protocol Pain management per patient choice Plan and anticipate a vaginal delivery
[2019-02-05] MEDS: Penicillin G Potassium 2.5 MILLUNITS in Sodium Chloride 0.9% 50 ML IV SCH ×3 (12:31→19:37)
[2019-02-05] MEDS ORDERED: Ropivacaine 100 ML ONE (15:10)
--- NOTE | 2019-02-05 17:11 | PCM.PNLD ---
Labor Progress Note - VS & Meds Vital Signs: Last Vital Signs Temp 36.8 C 02/05/19 15:30 Pulse 100 02/05/19 15:30 Resp 18 02/05/19 14:25 BP 150/88 H 02/05/19 15:30 Pulse Ox 100 02/05/19 15:30 Active Medications: Current Medications Acetaminophen (Tylenol) 650 mg PO Q4H PRN PRN Reason: Pain (Mild 1-3) and fever Diphenhydramine HCl (Benadryl) 25 mg IVPUSH Q6H PRN PRN Reason: Itching Diphenhydramine HCl (Benadryl) 50 mg IVPUSH Q6H PRN PRN Reason: Itching Ephedrine Sulfate (Ephedrine Sulfate) 10 mg IVPUSH ASDIRECTED PRN PRN Reason: Hypotension Lactated Ringer's (Ringers, Lactated) 1,000 mls @ 125 mls/hr IV ASDIRECTED [facility] Last Admin: 02/05/19 15:07 Dose: 125 mls/hr Ropivacaine 200 mg/ Premix 100 mls @ 0 mls/hr EPIDUR ASDIRECTED [facility] Oxytocin/Sodium Chloride (Pitocin In Ns 20 Units/1,000 Ml) 20 unit in 1,000 mls @ 6 mls/hr IV TITRATE [facility]; Protocol Last Titration: 02/05/19 13:33 Dose: 20 munits/min, 60 mls/hr Penicillin G Potassium 2.5 (millunits/ Sodium Chloride) 50 mls @ 100 mls/hr IV Q4H [facility] Last Admin: 02/05/19 16:55 Dose: 100 mls/hr Naloxone HCl (Narcan) 0.1 mg IVPUSH ASDIRECTED PRN PRN Reason: Oversedation Ondansetron HCl (Zofran) 4 mg IV Q4H PRN PRN Reason: Nausea/Vomiting Sodium Chloride (Saline Flush) 10 ml FLUSH ASDIRECTED PRN PRN Reason: Keep Vein Open Discontinued Medications Lactated Ringer's (Ringers, Lactated) 1,000 mls @ 999 mls/hr IV .BOLUS ONE Stop: 02/05/19 08:50 Last Admin: 02/05/19 14:05 Dose: 999 mls/hr Penicillin G Potassium 5 (millunits/ Sodium Chloride) 50 mls @ 100 mls/hr IV ONETIME ONE Stop: 02/05/19 08:59 Last Admin: 02/05/19 08:33 Dose: 100 mls/hr Ropivacaine (Naropin 0.2%) Confirm Administered Dose 100 mls @ as directed .ROUTE .STK-MED ONE Stop: 02/05/19 15:11 Misoprostol (Cytotec) 50 mcg VAG ONETIME ONE Stop: 02/05/19 07:31 Last Admin: 02/05/19 08:44 Dose: Not Given - Uterine Contractions Uterine Monitoring Mode: External [place] Contraction Frequency (min): 2 Contraction Duration (sec): 60 Contraction Intensity: Strong Uterine Resting Tone: Soft - Monitoring Monitor Mode: External Ultrasound Heart Rate (FHR) Variability: Moderate (6-25 bmp) - Vaginal Exam Dilation (cm): 10 Effacement (Percent): 100 Station: -1 Cervical Position: Midposition Sterile Vaginal Exam Performed By: Teresa Phan - Labor Progress (Free Text) Labor Progress: 02/05/2019 Patient progressed to complete Pushing but fetus is slight OP with asynclitism so trying position changes Plan- Position change then will push again Plan and anticipate a vaginal delivery
[2019-02-05] MEDS ORDERED: Lidocaine 1% 50 ML MDV ONE (18:12)
[2019-02-05] MEDS ORDERED: Benzocaine 20% Top Spray 56 GM Bottle TOP ONE (19:00)
[2019-02-05] MEDS ORDERED: Hydrocortisone 2.5% Crm 30 GM Tube TOP PRN (19:00)
[2019-02-05] MEDS ORDERED: Docusate Sodium 100 MG Cap PO PRN (19:00)
[2019-02-05] MEDS ORDERED: Lanolin 100% Cream 40 GM Tube TOP PRN (19:00)
[2019-02-05] MEDS ORDERED: Ibuprofen 200 MG Tab, 24 Tab Bulk Bottle PO PRN (19:00)
[2019-02-05] MEDS ORDERED: Acetaminophen 325 MG Tab, 50 Tab Bulk Bottle PO PRN (19:00)
[2019-02-05] MEDS ORDERED: Witch Hazel Medicated Pads 100/Jar TOP ONE (19:00)
--- NOTE | 2019-02-05 19:20 | PCM.DEL ---
L & D Note - General Info Date of Service: 02/05/19 - Delivery Note Labor: Spontaneous Cervical Ripening Method: Oxytocin Delivery Outcome: Livebirth Infant Delivery Method: Spontaneous Vaginal Delivery-Single Delivery Mode: Spontaneous Presentation: Left Occiput Transverse (LOT) Anesthesia Type: None Amniotic Fluid Description: Meconium Stained Episiotomy Type: None Laceration: 2nd Degree Suture size: 3-0 Placenta: Intact, Spontaneous, Meconium Stained Cord: 3 Vessels Estimated Blood Loss: 400 Resuscitation Needed: No [place]: Bulb Syringe, Stimulated, Warmed Score 1 min: 6 Score 5 min: 9 Second Stage Interventions: Reports: Second Nurse Assessed Progress of Descent, Second Nurse Reviewed Contraction Pattern, Second Nurse Reviewed Heart Tones, Encouragement Given, Laboring Down, Pushing Effectively, Pushing, Knee Chest Position, Pushing, Left Side, Pushing, McRobert's Position, Pushing, Right Side, Pushing, Stirrups/Leg Supports Delivery Comments (Free Text/Narrative):: 02/05/2019 38 yo delivered a viable male infant in LOT position over an intact perineum on 02/05/2019 at 1817. Infant had been in an asynclitic position for pushing, we repositioned in mulitple ways for one hour and then pushed again with success and delivering vaginally and then was placed on prewarmed blanket on mother's abdomen. Cord was double clamped and cut. was slightly stunned in nature so was brought to warmer by provider. began to cry out on way to warmer. With drying, stimulation, and bulb suction was then pinking in color and crying vigorously. APGARS-6/9, weight-9lbs 3oz, length-20.5 inches, placenta then delivered spontaneous and intact, three vessel cord, and EBL-400ml. Second degree perineal laceration repaired in usual fashion, no other lacerations noted of perineum, vagina, rectum, or cervix. Infant now skin to skin with mother and both stable in labor and delivery room. Stages of labor- [id number], with one hour of laboring down and position change [id number] - General Info Date of Service: 02/05/19 Functional Status: Reports: Pain Controlled - Review of Systems General: Reports: No Symptoms HEENT: Reports: No Symptoms Pulmonary: Reports: No Symptoms Cardiovascular: Reports: No Symptoms Gastrointestinal: Reports: No Symptoms Genitourinary: Reports: No Symptoms Musculoskeletal: Reports: No Symptoms Skin: Reports: No Symptoms Neurological: Reports: No Symptoms Psychiatric: Reports: No Symptoms - Patient Data Vitals - Most Recent: Last Vital Signs Temp 36.8 C 02/05/19 17:14 Pulse 101 H 02/05/19 17:14 Resp 20 02/05/19 17:14 BP 132/76 02/05/19 17:14 Pulse Ox 96 02/05/19 17:14 Weight - Most Recent: 86.908 kg I&O - Last 24 Hours: Intake & Output 02/05/19 02/05/19 02/05/19 06:59 14:59 22:59 Intake Total 900 Balance 900 Lab Results Last 24 Hours: Laboratory Results - last 24 hr 02/05/19 02/05/19 02/05/19 Range/Units 07:10 07:10 07:11 WBC 6.1 (4.5-11.0) K/uL RBC 3.90 (3.30-5.50) M/uL Hgb 11.4 L (12.0-15.0) g/dL Hct 35.3 L (36.0-48.0) % MCV 91 (80-98) fL MCH 29 (27-31) pg MCHC 32 (32-36) % Plt Count 233 (150-400) K/uL Urine Color Yellow (YELLOW) Urine Appearance Cloudy A (CLEAR) Urine pH 6.5 (5.0-8.0) Ur Specific [place] 1.015 (1.008-1.030) Urine Protein Negative (NEGATIVE) mg/dL Urine Glucose (UA) Negative (NEGATIVE) mg/dL Urine Ketones Negative (NEGATIVE) mg/dL Urine Occult Blood Moderate H (NEGATIVE) Urine Nitrite Negative (NEGATIVE) Urine Bilirubin Negative (NEGATIVE) Urine Urobilinogen 0.2 (0.2-1.0) EU/dL Ur Leukocyte Esterase Small H (NEGATIVE) Urine RBC Not seen (0-5) Urine WBC 0-5 (0-5) Ur Epithelial Cells Many Amorphous Sediment Not seen Urine Bacteria Moderate Urine Mucus Not seen Urine Opiates Screen Negative (NEGATIVE) Ur Oxycodone Screen Negative (NEGATIVE) Urine Methadone Screen Negative (NEGATIVE) Ur Propoxyphene Screen Negative (NEGATIVE) Ur Barbiturates Screen Negative (NEGATIVE) Ur Tricyclics Screen Negative (NEGATIVE) Ur Phencyclidine Scrn Negative (NEGATIVE) Ur Amphetamine Screen Negative (NEGATIVE) U Methamphetamines Scrn Negative (NEGATIVE) Urine MDMA Screen Negative (NEGATIVE) U Benzodiazepines Scrn Negative (NEGATIVE) U Cocaine Metab Screen Negative (NEGATIVE) U Marijuana (THC) Screen Negative (NEGATIVE) Med Orders - Current: Current Medications Acetaminophen (Tylenol) 650 mg PO Q4H PRN PRN Reason: Pain (Mild 1-3) and fever Acetaminophen (Tylenol Bulk Bottle) 0 mg PO Q4H PRN PRN Reason: Pain Diphenhydramine HCl (Benadryl) 25 mg IVPUSH Q6H PRN PRN Reason: Itching Diphenhydramine HCl (Benadryl) 50 mg IVPUSH Q6H PRN PRN Reason: Itching Docusate Sodium (Colace) 100 mg PO BID PRN PRN Reason: Constipation Emollient Ointment (Lansinoh Hpa) 40 gm TOP ASDIRECTED PRN PRN Reason: Pain Ephedrine Sulfate (Ephedrine Sulfate) 10 mg IVPUSH ASDIRECTED PRN PRN Reason: Hypotension Hydrocortisone (Hydrocortisone 2.5% Crm) 1 gm TOP ASDIRECTED PRN PRN Reason: Other Lactated Ringer's (Ringers, Lactated) 1,000 mls @ 125 mls/hr IV ASDIRECTED [facility] Last Admin: 02/05/19 15:07 Dose: 125 mls/hr Ropivacaine 200 mg/ Premix 100 mls @ 0 mls/hr EPIDUR ASDIRECTED [facility] Oxytocin/Sodium Chloride (Pitocin In Ns 20 Units/1,000 Ml) 20 unit in 1,000 mls @ 6 mls/hr IV TITRATE [facility]; Protocol Last Titration: 02/05/19 19:02 Dose: 999 mls/hr Penicillin G Potassium 2.5 (millunits/ Sodium Chloride) 50 mls @ 100 mls/hr IV Q4H [facility] Last Admin: 02/05/19 16:55 Dose: 100 mls/hr Ibuprofen (Motrin Bulk Bottle) 600 mg PO Q6H PRN PRN Reason: Pain Naloxone HCl (Narcan) 0.1 mg IVPUSH ASDIRECTED PRN PRN Reason: Oversedation Ondansetron HCl (Zofran) 4 mg IV Q4H PRN PRN Reason: Nausea/Vomiting Sodium Chloride (Saline Flush) 10 ml FLUSH ASDIRECTED PRN PRN Reason: Keep Vein Open Discontinued Medications Benzocaine (Ggex-K-Mpcsazt 20% [place]) 0 gm TOP ONETIME ONE Stop: 02/05/19 19:01 Lactated Ringer's (Ringers, Lactated) 1,000 mls @ 999 mls/hr IV .BOLUS ONE Stop: 02/05/19 08:50 Last Admin: 02/05/19 14:05 Dose: 999 mls/hr Penicillin G Potassium 5 (millunits/ Sodium Chloride) 50 mls @ 100 mls/hr IV ONETIME ONE Stop: 02/05/19 08:59 Last Admin: 02/05/19 08:33 Dose: 100 mls/hr Ropivacaine (Naropin 0.2%) Confirm Administered Dose 100 mls @ as directed .ROUTE .STK-MED ONE Stop: 02/05/19 15:11 Oxytocin/Sodium Chloride (Pitocin In Ns 20 Units/1,000 Ml) Confirm Administered Dose 20 unit in 1,000 mls @ as directed .ROUTE .STK-MED ONE Stop: 02/05/19 18:13 Last Admin: 02/05/19 18:42 Dose: 125 mls/hr Lidocaine HCl (Xylocaine 1%) Confirm Administered Dose 100 ml .ROUTE .STK-MED ONE Stop: 02/05/19 18:13 Misoprostol (Cytotec) 50 mcg VAG ONETIME ONE Stop: 02/05/19 07:31 Last Admin: 02/05/19 08:44 Dose: Not Given Witch Trish (Tucks) 1 pad TOP ONETIME ONE Stop: 02/05/19 19:01 - Exam General: Alert, Oriented HEENT: Pupils Equal, Pupils Reactive, EOMI, Mucous Membr. Moist/[place] Neck: Supple Lungs: Clear to Auscultation, Normal Respiratory Effort Cardiovascular: Regular Rate, Regular Rhythm GI/Abdominal Exam: Normal Bowel Sounds, Soft, Non-Tender, No Organomegaly, No Distention, No Abnormal Bruit, No Mass, Pelvis Stable (Female) Exam: Normal External Exam, Normal Speculum Exam, Normal Bimanual Exam, Enlarged Uterus, Vaginal Bleeding Back Exam: Normal Inspection, Full Range of Motion Extremities: Normal Inspection, Normal Range of Motion, Non-Tender, No Pedal Edema, Normal Capillary Refill Skin: Warm, Dry, Intact Wound/Incisions: Healing Well Neurological: No New Focal Deficit Psy/Mental Status: Alert, Normal Affect, Normal Mood - Problem List & Annotations (1) Positive GBS test SNOMED Code(s): 767983128, 750997521 Code(s): B95.1 - STREPTOCOCCUS, GROUP B, CAUSING DISEASES CLASSD [id number] Status: Acute Current Visit: Yes (2) Advanced maternal age (AMA), 40 years or greater SNOMED Code(s): 358759452 Code(s): KLG3353 - Status: Acute Current Visit: No (3) Encounter for induction of labor SNOMED Code(s): 136121788 Code(s): Z34.90 - ENCNTR FOR SUPRVSN OF NORMAL , UNSP, UNSP TRIMESTER Status: Acute Current Visit: No (4) SNOMED Code(s): 36051494 Code(s): Z34.90 - ENCNTR FOR SUPRVSN OF NORMAL , UNSP, UNSP TRIMESTER Status: Acute Current Visit: No Qualifiers: Weeks of gestation: 40 weeks Qualified Code(s): Z3A.40 - 40 weeks gestation of - Problem List Review Problem List Initiated/Reviewed/Updated: Yes - My Orders Last 24 Hours: My Active Orders 02/05/19 07:30 Lactated Ringers [Ringers, Lactated] 1,000 ml IV ASDIRECTED 02/05/19 07:50 Patient Status [ADT] Routine Ambulate [RC] PER UNIT ROUTINE Communication Order [RC] ASDIRECTED Communication Order [RC] ASDIRECTED Communication Order [RC] ROUTINE Communication Order [RC] ROUTINE Communication Order [RC] ROUTINE Local Anesthetic Infusion Pump [RC] ASDIRECTED Notify Provider Vital Signs [RC] PRN Notify Provider [RC] PRN Oxygen Therapy [RC] ASDIRECTED PCEA Epidural [RC] ASDIRECTED PCEA Epidural [RC] ASDIRECTED Pulse Oximetry [RC] ASDIRECTED Up ad [place] [RC] ASDIRECTED Vital Signs [RC] PER UNIT ROUTINE Vital Signs [RC] PER UNIT ROUTINE Acetaminophen [Tylenol] 650 mg PO Q4H PRN Naloxone [Narcan] 0.1 mg IVPUSH ASDIRECTED PRN Ondansetron [Zofran] 4 mg IV Q4H PRN Sodium Chloride 0.9% [Saline Flush] 10 ml FLUSH ASDIRECTED PRN diphenhydrAMINE [Benadryl] 25 mg IVPUSH Q6H PRN diphenhydrAMINE [Benadryl] 50 mg IVPUSH Q6H PRN ePHEDrine [ePHEDrine sulfate] 10 mg IVPUSH ASDIRECTED PRN DVT/VTE Prophylaxis Reflex [OM.PC] Routine Epidural Catheter Management [OM.PC] Routine Epidural Catheter Management [OM.PC] Urgent Peripheral IV Insertion Pediatric [OM.PC] Routine Saline Lock Insert [OM.PC] Routine Resuscitation Status Routine 02/05/19 07:51 PCEA Epidural [RC] ASDIRECTED Peripheral IV Care [RC] . DIRECTED Urinary Catheter Assessment [RC] ASDIRECTED 02/05/19 07:52 VTE/DVT Education [RC] Click to Edit 02/05/19 08:00 Insert Urinary Catheter [OM.PC] ASDIRECTED Oxytocin/Normal Saline [Pitocin in NS 20 Units/1,000 ML] 20 unit in 1,000 ml IV TITRATE Ropivacaine [Naropin 0.2%] 200 mg Premix Bag 1 bag EPIDUR ASDIRECTED 02/05/19 12:30 Penicillin G Potassium [Pfizerpen] 2.5 millunits Sodium Chloride 0.9% [Normal Saline] 50 ml IV Q4H 02/05/19 19:00 Patient Status [ADT] Routine Vital Signs [RC] PFP Acetaminophen [Tylenol Bulk Bottle] See Dose Instructions PO Q4H PRN Docusate Sodium [Colace] 100 mg PO BID PRN Hydrocortisone [Hydrocortisone 2.5% Crm] 1 gm TOP ASDIRECTED PRN Ibuprofen [Motrin Bulk Bottle] 600 mg PO Q6H PRN Lanolin [Lansinoh HPA] 40 gm TOP ASDIRECTED PRN Assess Lochia [WOMSER] Per Unit Routine Assess Uterine Involution [WOMSER] Per Unit Routine 02/05/19 19:02 Sitz Bath [OM.PC] Per Unit Routine 02/05/19 19:03 Perineal Care [OM.PC] Per Unit Routine 02/05/19 Breakfast Regular Diet [DIET] 02/06/19 06:00 CBC WITH AUTO DIFF [HEME] Routine - Assessment Assessment:: 02/05/2019 40 at 40 0/7 gestational weeks without complications GBS positive Advanced Maternal Age Second degree laceration-repaired - Plan Plan:: 02/05/2019 38 yo here at 40 0/7 weeks gestation for induction of labor Advanced maternal age GBS positive History of macrosomia in previous deliveries Labs-A positive, Hep B neg, Hep C neg, HIV neg, RPR nonreactive, GBS positive SVE-3-/-1 FHTs category one Plan- Continue to monitor for active labor Continue to monitor for FHTs Start Pitocin per protocol Start PCN G for GBS per protocol Patient may be up ad merlyn Patient may have epidural for pain management Patient may eat regular diet Plan and anticipate a vaginal delivery 02/05/2019 Plan- Routine cares Encourage and support Plan discharge at 48hours for GBS positive
--- NOTE | 2019-02-06 00:50 | ANES ---
DATE OF SERVICE: 02/05/2019 INDICATIONS: I was called by the OB department this afternoon for a lady in for an induction requesting a labor epidural. This lady actually was in last Saturday for induction and a labor epidural was placed at that time, but did not progress well, so the nurse english faculty member sent her home later that evening. She is back today again for an induction because she is 40 weeks, but was in active labor this time. Platelet count was noted to be 233 at this visit. Again, the risks and benefits were reviewed with the patient. The patient verbalizes understanding and wishes to proceed with the labor epidural today. TECHNIQUE: The patient then was sat at the edge of the bed. Betadine prep x3 to the lumbar region was done. Sterile drape was placed. 1% lidocaine skin wheal and deep was done. A 17-gauge Tuohy was inserted at approximately the L4-L5 position. Loss of resistance was achieved at approximately 5.5 cm. Catheter was easily placed. Tuohy needle was withdrawn. The catheter was pulled back and secured at approximately 14 cm. Test dose was given. The patient was then laid in a supine position with left uterine displacement. Several minutes after the test dose, heart rate was noted to be maintained in the 90s, and the patient was able to move her legs without difficulty. I then proceeded to give the patient 12 mL of 0.2% ropivacaine bolus via the epidural and started her on a 0.2% ropivacaine drip at 12 mL an hour. The patient tolerated the entire procedure without difficulty. Blood pressure also maintained after the bolus. Please refer to the nurse's notes for vital signs. Prior to leaving the bedside, the patient stated that she was feeling some numbness in both of her legs and was starting to get a little bit of relief from the epidural. We will continue to monitor the patient as needed. Calin Jeffery CRNA /[id number]
--- NOTE | 2019-02-06 08:18 | PCM.PNPP ---
- General Info Date of Service: 02/06/19 Functional Status: Reports: Pain Controlled - Review of Systems General: Reports: No Symptoms HEENT: Reports: No Symptoms Pulmonary: Reports: No Symptoms Cardiovascular: Reports: No Symptoms Gastrointestinal: Reports: No Symptoms Genitourinary: Reports: No Symptoms Musculoskeletal: Reports: No Symptoms Skin: Reports: No Symptoms Neurological: Reports: No Symptoms Psychiatric: Reports: No Symptoms - General Info Date of Service: 02/06/19 - Patient Data Vital Signs - Most Recent: Last Vital Signs Temp 35.7 C 02/06/19 04:17 Pulse 78 02/06/19 04:17 Resp 16 02/06/19 04:17 BP 131/79 02/06/19 04:17 Pulse Ox 97 02/06/19 04:17 Weight - Most Recent: 86.908 kg I&O - Last 24 Hours: Intake & Output 02/05/19 02/06/19 02/06/19 22:59 06:59 14:59 Intake Total 1946 Balance 1946 Lab Results - Last 24 Hours: Laboratory Results - last 24 hr 02/06/19 Range/Units 05:05 WBC 8.6 (4.5-11.0) K/uL RBC 3.27 L (3.30-5.50) M/uL Hgb 9.6 L (12.0-15.0) g/dL Hct 29.9 L (36.0-48.0) % MCV 91 (80-98) fL MCH 29 (27-31) pg MCHC 32 (32-36) % Plt Count 191 (150-400) K/uL Neut % (Auto) 71 H (36-66) % Lymph % (Auto) 20 L (24-44) % [place] % (Auto) 9 H (2-6) % Eos % (Auto) 0 L (2-4) % Baso % (Auto) 0 (0-1) % Med Orders - Current: Current Medications Acetaminophen (Tylenol Bulk Bottle) 0 mg PO Q4H PRN PRN Reason: Pain Last Admin: 02/05/19 19:37 Dose: 325 mg Diphenhydramine HCl (Benadryl) 25 mg IVPUSH Q6H PRN PRN Reason: Itching Diphenhydramine HCl (Benadryl) 50 mg IVPUSH Q6H PRN PRN Reason: Itching Docusate Sodium (Colace) 100 mg PO BID PRN PRN Reason: Constipation Emollient Ointment (Lansinoh Hpa) 0 gm TOP ASDIRECTED PRN PRN Reason: Pain Last Admin: 02/05/19 19:35 Dose: 1 applic Hydrocortisone (Hydrocortisone 2.5% Crm) 1 gm TOP ASDIRECTED PRN PRN Reason: Other Lactated Ringer's (Ringers, Lactated) 1,000 mls @ 125 mls/hr IV ASDIRECTED [facility] Last Admin: 02/05/19 15:07 Dose: 125 mls/hr Ibuprofen (Motrin Bulk Bottle) 600 mg PO Q6H PRN PRN Reason: Pain Last Admin: 02/05/19 19:36 Dose: 600 mg Naloxone HCl (Narcan) 0.1 mg IVPUSH ASDIRECTED PRN PRN Reason: Oversedation Ondansetron HCl (Zofran) 4 mg IV Q4H PRN PRN Reason: Nausea/Vomiting Sodium Chloride (Saline Flush) 10 ml FLUSH ASDIRECTED PRN PRN Reason: Keep Vein Open Discontinued Medications Benzocaine (Glor-J-Mvmhqre 20% [place]) 0 gm TOP ONETIME ONE Stop: 02/05/19 19:01 Last Admin: 02/05/19 19:35 Dose: 1 applic Ephedrine Sulfate (Ephedrine Sulfate) 10 mg IVPUSH ASDIRECTED PRN PRN Reason: Hypotension Lactated Ringer's (Ringers, Lactated) 1,000 mls @ 999 mls/hr IV .BOLUS ONE Stop: 02/05/19 08:50 Last Admin: 02/05/19 14:05 Dose: 999 mls/hr Ropivacaine 200 mg/ Premix 100 mls @ 0 mls/hr EPIDUR ASDIRECTED [facility] Oxytocin/Sodium Chloride (Pitocin In Ns 20 Units/1,000 Ml) 20 unit in 1,000 mls @ 6 mls/hr IV TITRATE [facility]; Protocol Last Titration: 02/05/19 19:02 Dose: 999 mls/hr Penicillin G Potassium 5 (millunits/ Sodium Chloride) 50 mls @ 100 mls/hr IV ONETIME ONE Stop: 02/05/19 08:59 Last Admin: 02/05/19 08:33 Dose: 100 mls/hr Penicillin G Potassium 2.5 (millunits/ Sodium Chloride) 50 mls @ 100 mls/hr IV Q4H [facility] Last Admin: 02/05/19 19:37 Dose: Not Given Ropivacaine (Naropin 0.2%) Confirm Administered Dose 100 mls @ as directed .ROUTE .STK-MED ONE Stop: 02/05/19 15:11 Oxytocin/Sodium Chloride (Pitocin In Ns 20 Units/1,000 Ml) Confirm Administered Dose 20 unit in 1,000 mls @ as directed .ROUTE .STK-MED ONE Stop: 02/05/19 18:13 Last Admin: 02/05/19 18:42 Dose: 125 mls/hr Lidocaine HCl (Xylocaine 1%) Confirm Administered Dose 100 ml .ROUTE .STK-MED ONE Stop: 02/05/19 18:13 Misoprostol (Cytotec) 50 mcg VAG ONETIME ONE Stop: 02/05/19 07:31 Last Admin: 02/05/19 08:44 Dose: Not Given Witch Trish (Tucks) 1 pad TOP ONETIME ONE Stop: 02/05/19 19:01 Last Admin: 02/05/19 19:36 Dose: 1 applic - Infant Interaction Infant Disposition, : in Room with Family Interaction: Holding Feeding: Breastfed ; Nursed Well, Other (see below) (and supplementing with formula) Support Person: - Recovery Exam Fundal Tone: Firm Fundal Level: At Umbilicus Fundal Placement: Midline Lochia Amount: Small Lochia Color: Rubra/Red Perineum Description: Ecchymotic, Edematous Episiotomy/Laceration: Not Approximated Bladder Status: Nonpalpable Urinary Elimination: Voided - Exam General: Alert, Oriented HEENT: Pupils Equal, Pupils Reactive, EOMI, Mucous Membr. Moist/[place] Neck: Supple Lungs: Clear to Auscultation, Normal Respiratory Effort Cardiovascular: Regular Rate, Regular Rhythm, No Murmurs GI/Abdominal Exam: Normal Bowel Sounds, Soft, Non-Tender, No Organomegaly, No Distention, No Abnormal Bruit, No Mass, Pelvis Stable Extremities: Normal Inspection, Normal Range of Motion, Non-Tender, No Pedal Edema, Normal Capillary Refill Skin: Warm, Dry, Intact Neurological: No New Focal Deficit Psy/Mental Status: Alert, Normal Affect, Normal Mood - Problem List & Annotations (1) Positive GBS test SNOMED Code(s): 946425911, 188236722 Code(s): B95.1 - STREPTOCOCCUS, GROUP B, CAUSING DISEASES CLASSD ELSR Status: Acute Current Visit: Yes (2) Advanced maternal age (AMA), 40 years or greater SNOMED Code(s): 874192305 Code(s): QSH9381 - Status: Acute Current Visit: Yes (3) Encounter for induction of labor SNOMED Code(s): 529281639 Code(s): Z34.90 - ENCNTR FOR SUPRVSN OF NORMAL , UNSP, UNSP TRIMESTER Status: Acute Current Visit: Yes (4) SNOMED Code(s): 24573326 Code(s): Z34.90 - ENCNTR FOR SUPRVSN OF NORMAL , UNSP, UNSP TRIMESTER Status: Acute Current Visit: Yes Qualifiers: Weeks of gestation: 40 weeks Qualified Code(s): Z3A.40 - 40 weeks gestation of (5) Meconium in amniotic fluid SNOMED Code(s): 051530301 Code(s): P96.83 - MECONIUM STAINING Status: Acute Current Visit: Yes (6) Perineal laceration SNOMED Code(s): 752011364 Code(s): WIT2007 - Status: Acute Current Visit: Yes (7) Vaginal delivery SNOMED Code(s): 579868197 Code(s): O80 - ENCOUNTER FOR FULL-TERM UNCOMPLICATED DELIVERY Status: Acute Current Visit: Yes - Problem List Review Problem List Initiated/Reviewed/Updated: Yes - My Orders Last 24 Hours: My Active Orders 02/05/19 07:30 Lactated Ringers [Ringers, Lactated] 1,000 ml IV ASDIRECTED 02/05/19 07:50 Patient Status [ADT] Routine Ambulate [RC] PER UNIT ROUTINE Communication Order [RC] ROUTINE Notify Provider Vital Signs [RC] PRN Notify Provider [RC] PRN Oxygen Therapy [RC] ASDIRECTED Pulse Oximetry [RC] ASDIRECTED Up ad [place] [RC] ASDIRECTED Vital Signs [RC] PER UNIT ROUTINE Vital Signs [RC] Q4H Naloxone [Narcan] 0.1 mg IVPUSH ASDIRECTED PRN Ondansetron [Zofran] 4 mg IV Q4H PRN Sodium Chloride 0.9% [Saline Flush] 10 ml FLUSH ASDIRECTED PRN diphenhydrAMINE [Benadryl] 25 mg IVPUSH Q6H PRN diphenhydrAMINE [Benadryl] 50 mg IVPUSH Q6H PRN DVT/VTE Prophylaxis Reflex [OM.PC] Routine Epidural Catheter Management [OM.PC] Routine Epidural Catheter Management [OM.PC] Urgent Peripheral IV Insertion Pediatric [OM.PC] Routine Saline Lock Insert [OM.PC] Routine Resuscitation Status Routine 02/05/19 07:51 Peripheral IV Care [RC] . DIRECTED 02/05/19 08:00 Insert Urinary Catheter [OM.PC] ASDIRECTED 02/05/19 19:00 Patient Status [ADT] Routine Vital Signs [RC] PFP Acetaminophen [Tylenol Bulk Bottle] See Dose Instructions PO Q4H PRN Docusate Sodium [Colace] 100 mg PO BID PRN Hydrocortisone [Hydrocortisone 2.5% Crm] 1 gm TOP ASDIRECTED PRN Ibuprofen [Motrin Bulk Bottle] 600 mg PO Q6H PRN Lanolin [Lansinoh HPA] 0 gm TOP ASDIRECTED PRN Assess Lochia [WOMSER] Per Unit Routine Assess Uterine Involution [WOMSER] Per Unit Routine 02/05/19 19:02 Sitz Bath [OM.PC] Per Unit Routine 02/05/19 19:03 Perineal Care [OM.PC] Per Unit Routine 02/05/19 Breakfast Regular Diet [DIET] - Assessment Assessment:: 02/05/2019 40 at 40 0/7 gestational weeks without complications GBS positive Advanced Maternal Age Second degree laceration-repaired 02/06/2019 without complications GBS positive-antibiotics received Advanced Maternal Age Second degree laceration-no signs of hematoma, slight swelling today fair, and supplementing with formula Fundus firm and bleeding decreasing Voiding and stooling Happy with delivery - Plan Plan:: 02/05/2019 38 yo here at 40 0/7 weeks gestation for induction of labor Advanced maternal age GBS positive History of macrosomia in previous deliveries Labs-A positive, Hep B neg, Hep C neg, HIV neg, RPR nonreactive, GBS positive SVE-3-/-1 FHTs category one Plan- Continue to monitor for active labor Continue to monitor for FHTs Start Pitocin per protocol Start PCN G for GBS per protocol Patient may be up ad merlyn Patient may have epidural for pain management Patient may eat regular diet Plan and anticipate a vaginal delivery 02/05/2019 Plan- Routine cares Encourage and support Plan discharge at 48hours for GBS positive 02/06/2019 Continue routine cares Continue to encourage and support to see Plan discharge at 48hours for GBS positive
--- NOTE | 2019-02-07 09:21 | PCM.PNPP ---
- General Info Date of Service: 02/07/19 Functional Status: Reports: Pain Controlled - Review of Systems General: Reports: No Symptoms HEENT: Reports: No Symptoms Pulmonary: Reports: No Symptoms Cardiovascular: Reports: No Symptoms Gastrointestinal: Reports: No Symptoms Genitourinary: Reports: No Symptoms Musculoskeletal: Reports: No Symptoms Skin: Reports: No Symptoms Neurological: Reports: No Symptoms Psychiatric: Reports: No Symptoms - General Info Date of Service: 02/07/19 - Patient Data Vital Signs - Most Recent: Last Vital Signs Temp 35.8 C 02/07/19 07:17 Pulse 72 02/07/19 07:17 Resp 18 02/07/19 07:17 BP 125/61 02/07/19 07:17 Pulse Ox 99 02/07/19 07:17 Weight - Most Recent: 86.908 kg I&O - Last 24 Hours: Intake & Output 02/06/19 02/07/19 02/07/19 22:59 06:59 14:59 Intake Total 1000 120 Balance 1000 120 Med Orders - Current: Current Medications Acetaminophen (Tylenol Bulk Bottle) 0 mg PO Q4H PRN PRN Reason: Pain Last Admin: 02/05/19 19:37 Dose: 325 mg Diphenhydramine HCl (Benadryl) 25 mg IVPUSH Q6H PRN PRN Reason: Itching Diphenhydramine HCl (Benadryl) 50 mg IVPUSH Q6H PRN PRN Reason: Itching Docusate Sodium (Colace) 100 mg PO BID PRN PRN Reason: Constipation Emollient Ointment (Lansinoh Hpa) 0 gm TOP ASDIRECTED PRN PRN Reason: Pain Last Admin: 02/05/19 19:35 Dose: 1 applic Hydrocortisone (Hydrocortisone 2.5% Crm) 1 gm TOP ASDIRECTED PRN PRN Reason: Other Lactated Ringer's (Ringers, Lactated) 1,000 mls @ 125 mls/hr IV ASDIRECTED MIGUELITO Last Admin: 02/05/19 15:07 Dose: 125 mls/hr Ibuprofen (Motrin Bulk Bottle) 600 mg PO Q6H PRN PRN Reason: Pain Last Admin: 02/05/19 19:36 Dose: 600 mg Naloxone HCl (Narcan) 0.1 mg IVPUSH ASDIRECTED PRN PRN Reason: Oversedation Ondansetron HCl (Zofran) 4 mg IV Q4H PRN PRN Reason: Nausea/Vomiting Sodium Chloride (Saline Flush) 10 ml FLUSH ASDIRECTED PRN PRN Reason: Keep Vein Open Discontinued Medications Benzocaine (Fuic-G-Qqkyzyc 20% [place]) 0 gm TOP ONETIME ONE Stop: 02/05/19 19:01 Last Admin: 02/05/19 19:35 Dose: 1 applic Ephedrine Sulfate (Ephedrine Sulfate) 10 mg IVPUSH ASDIRECTED PRN PRN Reason: Hypotension Lactated Ringer's (Ringers, Lactated) 1,000 mls @ 999 mls/hr IV .BOLUS ONE Stop: 02/05/19 08:50 Last Admin: 02/05/19 14:05 Dose: 999 mls/hr Ropivacaine 200 mg/ Premix 100 mls @ 0 mls/hr EPIDUR ASDIRECTED MIGUELITO Oxytocin/Sodium Chloride (Pitocin In Ns 20 Units/1,000 Ml) 20 unit in 1,000 mls @ 6 mls/hr IV TITRATE MIGUELITO; Protocol Last Titration: 02/05/19 19:02 Dose: 999 mls/hr Penicillin G Potassium 5 (millunits/ Sodium Chloride) 50 mls @ 100 mls/hr IV ONETIME ONE Stop: 02/05/19 08:59 Last Admin: 02/05/19 08:33 Dose: 100 mls/hr Penicillin G Potassium 2.5 (millunits/ Sodium Chloride) 50 mls @ 100 mls/hr IV Q4H MIGUELITO Last Admin: 02/05/19 19:37 Dose: Not Given Ropivacaine (Naropin 0.2%) Confirm Administered Dose 100 mls @ as directed .ROUTE .STK-MED ONE Stop: 02/05/19 15:11 Oxytocin/Sodium Chloride (Pitocin In Ns 20 Units/1,000 Ml) Confirm Administered Dose 20 unit in 1,000 mls @ as directed .ROUTE .STK-MED ONE Stop: 02/05/19 18:13 Last Admin: 02/05/19 18:42 Dose: 125 mls/hr Oxytocin/Sodium Chloride (Pitocin In Ns 20 Units/1,000 Ml) 20 unit in 1,000 mls @ 2,997 mls/hr IV ONETIME ONE; Protocol Stop: 02/05/19 18:32 Last Admin: 02/06/19 12:19 Dose: Not Given Oxytocin/Sodium Chloride (Pitocin In Ns 20 Units/1,000 Ml) 20 unit in 1,000 mls @ 999 mls/hr IV ONETIME ONE; Protocol Stop: 02/05/19 19:12 Last Admin: 02/06/19 12:19 Dose: Not Given Lidocaine HCl (Xylocaine 1%) Confirm Administered Dose 100 ml .ROUTE .STK-MED ONE Stop: 02/05/19 18:13 Last Admin: 02/06/19 12:19 Dose: Not Given Misoprostol (Cytotec) 50 mcg VAG ONETIME ONE Stop: 02/05/19 07:31 Last Admin: 02/05/19 08:44 Dose: Not Given Witch Trish (Tucks) 1 pad TOP ONETIME ONE Stop: 02/05/19 19:01 Last Admin: 02/05/19 19:36 Dose: 1 applic - Infant Interaction Infant Disposition, : [place] in Room with Family Interaction: Holding Infant Infant Feeding: Breastfed ; Nursed Well, Other (see below) (and supplementing with formula) Support Person: - Recovery Exam Fundal Tone: Firm Fundal Level: 3 Fingerbreadths Below Umbilicus Fundal Placement: Midline Lochia Amount: None Lochia Color: Rubra/Red Perineum Description: Ecchymotic, Edematous Episiotomy/Laceration: Approximated Bladder Status: Nonpalpable Urinary Elimination: Voided - Exam General: Alert, Oriented HEENT: Pupils Equal Neck: Supple Lungs: Clear to Auscultation, Normal Respiratory Effort Cardiovascular: Regular Rate, Regular Rhythm GI/Abdominal Exam: Normal Bowel Sounds, Soft, Non-Tender, No Distention, No Mass , Pelvis Stable Extremities: Normal Inspection, Normal Range of Motion, Non-Tender, No Pedal Edema, Normal Capillary Refill Skin: Warm, Dry, Intact Neurological: No New Focal Deficit Psy/Mental Status: Alert, Normal Affect, Normal Mood - Problem List & Annotations (1) Advanced maternal age (AMA), 40 years or greater SNOMED Code(s): 687604245 Code(s): XJD4646 - Status: Acute Current Visit: Yes (2) Encounter for induction of labor SNOMED Code(s): 900225986 Code(s): Z34.90 - ENCNTR FOR SUPRVSN OF NORMAL , UNSP, UNSP TRIMESTER Status: Acute Current Visit: Yes (3) Meconium in amniotic fluid SNOMED Code(s): 216742069 Code(s): P96.83 - MECONIUM STAINING Status: Acute Current Visit: Yes (4) Perineal laceration SNOMED Code(s): 109071982 Code(s): KOT8952 - Status: Acute Current Visit: Yes (5) Positive GBS test SNOMED Code(s): 607932252, 193468118 Code(s): B95.1 - STREPTOCOCCUS, GROUP B, CAUSING DISEASES CLASSD ELSWHR Status: Acute Current Visit: Yes (6) SNOMED Code(s): 00186672 Code(s): Z34.90 - ENCNTR FOR SUPRVSN OF NORMAL , UNSP, UNSP TRIMESTER Status: Acute Current Visit: Yes Qualifiers: Weeks of gestation: 40 weeks Qualified Code(s): Z3A.40 - 40 weeks gestation of (7) Vaginal delivery SNOMED Code(s): 287733773 Code(s): O80 - ENCOUNTER FOR FULL-TERM UNCOMPLICATED DELIVERY Status: Acute Current Visit: Yes - Problem List Review Problem List Initiated/Reviewed/Updated: Yes - Assessment Assessment:: 02/05/2019 40 at 40 0/7 gestational weeks without complications GBS positive Advanced Maternal Age Second degree laceration-repaired 02/06/2019 without complications GBS positive-antibiotics received Advanced Maternal Age Second degree laceration-no signs of hematoma, slight swelling today fair, and supplementing with formula Fundus firm and bleeding decreasing Voiding and stooling Happy with delivery 02/07/19 PP day 2 No complications, pain controlled, perineum approximated well, supplementing as well FF bleeding light Voiding without difficulty - Plan Plan:: 02/05/2019 38 yo here at 40 0/7 weeks gestation for induction of labor Advanced maternal age GBS positive History of macrosomia in previous deliveries Labs-A positive, Hep B neg, Hep C neg, HIV neg, RPR nonreactive, GBS positive SVE-3-/-1 FHTs category one Plan- Continue to monitor for active labor Continue to monitor for FHTs Start Pitocin per protocol Start PCN G for GBS per protocol Patient may be up ad melo Patient may have epidural for pain management Patient may eat regular diet Plan and anticipate a vaginal delivery 02/05/2019 Plan- Routine cares Encourage and support Plan discharge at 48hours for GBS positive 02/06/2019 Continue routine cares Continue to encourage and support to see Plan discharge at 48hours for GBS positive 02/07/19 Routine pp cares today Patient will discharge this afternoon (at least 12-1 pm for GBS), she is taught warning s/s for her and baby Has pump at home 6 week pp check with Teresa
== END 2019-02-07 12:55 | disposition home or self-care (01) | DRG 560 ==
LOC: JP.OB 06:49 → OBSVTOIN 18:17 → JP.MS 21:50
PROVIDERS: ADMIT Advanced Practice Midwife; ATTEND Advanced Practice Midwife
PROC: 10E0XZZ Delivery of Products of Conception, External Approach (ICD-10-PCS; principal; 2019-02-05)
PROC: 0KQM0ZZ Repair Perineum Muscle, Open Approach (ICD-10-PCS; 2019-02-05)
PROC: 3E0R3BZ Introduction of Anesthetic Agent into Spinal Canal, Percutaneous Approach (ICD-10-PCS; 2019-02-05)
PROC: 00HU33Z Insertion of Infusion Device into Spinal Canal, Percutaneous Approach (ICD-10-PCS; 2019-02-05)
PROC: 3E033VJ Introduction of Other Hormone into Peripheral Vein, Percutaneous Approach (ICD-10-PCS; 2019-02-05)
DX: O48.0 Post-term pregnancy (principal); O99.824 Streptococcus B carrier state complicating childbirth; O77.0 Labor and delivery complicated by meconium in amniotic fluid; O70.1 Second degree perineal laceration during delivery; Z3A.40 40 weeks gestation of pregnancy; Z37.0 Single live birth
CPT/HCPCS: 36415; 51702; 59409; 80305-QW; 81001; 85025; 85027; 99211; A9270-GY; J2540; J2590; J2795; J7050; J7120